=== PATIENT | male | born 1950 | race African-American/Black ===

== ENCOUNTER 2016-07-11 07:00 | Inpatient (IN) | payer MEDICARE, OTHER ==
[2016-07-12 05:16] LABS: HGB 14.5 g/dl (13.2-18.0); MCH 29.2 pg (25.0-31.0); MCV 88.5 fL (78.0-100.0); MPV 10.2 fL (6.0-9.5); RBC 4.97 M/uL (4.70-6.00); RDW 15.8 % (11.5-14.0); WBC 8.4 K/uL (4.0-10.5)
[2016-07-12 05:50] LABS: CREATININE 1.1 mg/dL (0.7-1.2); POTASSIUM 3.7 mmol/L (3.5-5.1)
[2016-07-13 04:35] LABS: HGB 14.4 g/dl (13.2-18.0); MCH 29.7 pg (25.0-31.0); MCHC 34.3 g/dL (32.0-36.0); MCV 86.6 fL (78.0-100.0); MPV 10.5 fL (6.0-9.5); RBC 4.85 M/uL (4.70-6.00); RDW 15.5 % (11.5-14.0); WBC 7.8 K/uL (4.0-10.5)
[2016-07-13 09:40] LABS: CREATININE 1.2 mg/dL (0.7-1.2); POTASSIUM 3.6 mmol/L (3.5-5.1)
[2016-07-14 05:06] LABS: HCT 42.4 % (42.0-52.0); HGB 14.5 g/dl (13.2-18.0); MCH 29.2 pg (25.0-31.0); MCHC 34.2 g/dL (32.0-36.0); MCV 85.5 fL (78.0-100.0); MPV 10.4 fL (6.0-9.5); RBC 4.96 M/uL (4.70-6.00); RDW 15.3 % (11.5-14.0); WBC 8.9 K/uL (4.0-10.5)
[2016-07-14 05:27] LABS: CREATININE 1.2 mg/dL (0.7-1.2); POTASSIUM 3.7 mmol/L (3.5-5.1)
== END 2016-07-14 11:53 | DRG 470 ==
LOC: FMS 07:00
PROVIDERS: Internal Medicine; ADMIT Legal Medicine
PROC: 8E0YXBZ Computer Assisted Procedure of Lower Extremity (ICD-10-PCS; 2016-07-11)
PROC: 0SRC0J9 Replacement of Right Knee Joint with Synthetic Substitute, Cemented, Open Approach (ICD-10-PCS; principal; 2016-07-11 07:00)
DX: M17.11 Unilateral primary osteoarthritis, right knee (principal); G62.9 Polyneuropathy, unspecified; I10 Essential (primary) hypertension; E11.9 Type 2 diabetes mellitus without complications; M06.9 Rheumatoid arthritis, unspecified; Z88.0 Allergy status to penicillin; Z88.2 Allergy status to sulfonamides; Z79.899 Other long term (current) drug therapy
CPT/HCPCS: 36415; 73560; 80048; 82962; 86850; 86900; 86901; 88305; 88311; 94010; 94762; 97110; 97116; 97162; 97166; 97530-GP; 97535; C1713; C1776; J0131; J1170; J1885; J2270; J2405; J2704; J2795; J3010

== ENCOUNTER 2016-07-14 12:12 | Inpatient (IN) | payer MEDICARE, OTHER ==
[2016-07-20 12:40] LABS: BILIRUBIN NEGATIVE (NEGATIVE); BLOOD TRACE-INTACT Ery/uL (NEGATIVE); CLARITY CLEAR (CLEAR); COLOR YELLOW (YELLOW); GLUCOSE (U) NORMAL (NORMAL); KETONE (U) NEGATIVE (NEGATIVE); LEUKOCYTES NEGATIVE Leu/uL (NEGATIVE); NITRITE NEGATIVE (NEGATIVE); PROTEIN 2+ mg/dL (NEGATIVE); SPECIFIC GRAVITY 1.015 (1.001-1.030); UROBILINOGEN 0.2 mg/dL (0.2-1.0)
[2016-07-20 12:48] LABS: BACTERIA TRACE; SQUAMOUS EPITHELIAL CELLS RARE; URINARY WBC RARE
--- NOTE | 2016-07-22 12:13 | NUR ---
DISCUSSED DISCHARGE INSTRUCTIONS WITH PATIENT AND . PAIN MEDICATION AND XARELTO GIVEN BEFORE D/C. INSTRUCTED ON WRAPPING NIRANJAN BANDAGES. MEPILEX INTACT TO KNEE INCISION C/D/I. PT IN STABLE CONDITION. D/C HOME WITH
--- NOTE | 2016-07-22 14:37 | NUR ---
PT. D/C HOME THIS DATE WITH SPOUSE. 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 PT. REQUESTED [facility] FOR PT./OT AND NURSING ASSESSMENT. PT. WAS GIVEN LAST XARELTO THIS DATE BEFORE DISCHARGE. D/C NOTICE AND QUESTIONNAIRE GIVEN.
== END 2016-07-22 12:15 | disposition home health service (06) | DRG 554 ==
LOC: FSNU 12:12
PROVIDERS: Internal Medicine; ADMIT Legal Medicine
DX: M17.11 Unilateral primary osteoarthritis, right knee (principal); G62.9 Polyneuropathy, unspecified; I10 Essential (primary) hypertension; Z47.1 Aftercare following joint replacement surgery; Z96.651 Presence of right artificial knee joint; E11.9 Type 2 diabetes mellitus without complications; M06.9 Rheumatoid arthritis, unspecified; Z88.0 Allergy status to penicillin; Z88.2 Allergy status to sulfonamides; Z79.899 Other long term (current) drug therapy; G47.30 Sleep apnea, unspecified; K21.9 Gastro-esophageal reflux disease without esophagitis
CPT/HCPCS: 81001; 97110; 97116; 97162; 97166; 97530; 97530-GP; 97535; 97537